=== PATIENT | male | born 1970 | race Caucasian/White ===

== ENCOUNTER 2021-04-03 10:03 | Inpatient (IN) | payer OTHER ==
[2021-04-03 11:10] LABS: Mean Corpuscular HGB CONC 32.9 g/dL (32.0-36.0); Mean Corpuscular Hemoglobin 32.7 pg (27.0-31.0); Mean Corpuscular Volume 99.4 fL (78.0-98.0); RBC Distribution Width 14.7 % (11.5-14.5); Red Blood Cell (RBC) Count 3.96 mill/uL (4.70-6.10)
[2021-04-03] MEDS ORDERED: Multivitamins, Adult 10 ML, Thiamine HCl 100 MG, Folic Acid 1 MG in Dextrose 5 %-0.45 %... IV SCH (11:30)
[2021-04-03] MEDS ORDERED: Sodium Chloride 0.9% 1,000 ML IV SCH (11:30)
[2021-04-03 11:32] LABS: Anisocytosis SLIGHT = 6-15 cells (100X) (0-5/hpf); Eosinophils 4 % (0-10); Hypochromia SLIGHT = 6-15 cells (100X) (0-5/hpf); Lymphocytes 21 % (21-51); MDiff Complete? YES; Mean Platelet Volume 9.4 fL (7.4-10.4); Monocytes 10 % (0-10); Neutrophil 62 % (42-75); Platelet Count 109 thou/uL (130-400); Platelet Morphology Comment Appears Decreased; Reactive Lymphocytes 3 % (0-10); Target Cells SLIGHT = 2-5 cells (100X) (0-1/hpf)
[2021-04-03 11:41] LABS: HBCM Index 0.14 S/CO (0-0.79); HBSAg Index 0.13 S/CO (0-0.99); Hep A IgM AB Non-Reactive (NonReactive); Hep A IgM S/CO 0.15 S/CO (0-0.79); Hep B Surf Ag Non-Reactive S/CO (NonReactive); Hep C IgG Ab Non-Reactive (NonReactive); Hep C Index 0.23 S/CO (0-0.79); Hepatitis B Core IgM Abs Non-Reactive (NonReactive)
[2021-04-03 12:10] LABS: INR-International Normal Ratio 1.1; PTT 32.7 sec (22.9-36.1); Prothrombin Time 14.7 sec (12.0-14.7)
[2021-04-03 12:13] LABS: Acetaminophen Less than 6.0 mcg/mL (10.0-30.0); Alcohol 214 mg/dL (Less than 10); Salicylate Less than 8.0 mg/dL (15.0-30.0)
[2021-04-03 12:15] LABS: ALT (SGPT) 161 U/L (8-55); AST (SGOT) 266 U/L (5-34); Albumin 2.9 g/dL (3.5-5.0); Alkaline Phosphatase 287 U/L (40-110); Anion Gap 15 mmol/L (10-20); BUN (Urea Nitrogen) 8 mg/dL (8.9-20.6); Bilirubin, Total 15.1 mg/dL (0.2-1.2); CK (CPK) 63 U/L (30-200); Calc. Creatinine Clearance 0 mL/min (70-130); Calcium 7.9 mg/dL (7.8-10.44); Carbon Dioxide 23 mmol/L (22-29); Chloride 95 mmol/L (98-107); Globulin 2.4 g/dL (2.4-3.5); Glucose 108 mg/dL (70-105); Lipase 145 U/L (8-78); Potassium 3.8 mmol/L (3.5-5.1); Protein, Total 5.3 g/dL (6.0-8.3); Sodium 129 mmol/L (136-145)
[2021-04-03 12:55] LABS: Bilirubin 4+ (Negative); Blood, Urine 1+ (Negative); Clarity Turbid (Clear); Glucose, Urine (Dipstick) Normal (Negative); Ketone, Urine Negative (Negative); Leukocyte Negative Leu/uL (Negative); Nitrite Negative (Negative); Protein, Urine (Dipstick) 30 mg/dL (Neg-Trace); RBC/HPF 0-3 HPF (0-3); Specific Gravity, Urine 1.013 (1.002-1.036); Squamous Epithelial 0-3 HPF (0-3); Urobilinogen Normal mg/dL (Less than 2); pH, Urine 6.5 (5.0-9.0)
[2021-04-03 13:12] LABS: Bilirubin, Direct 11.2 mg/dL (0.1-0.3)
[2021-04-03 13:17] LABS: Bacteria/HPF Rare-Few HPF (None Seen); Transitional Epithelial 0-3 HPF (None Seen); WBC/HPF 0-3 HPF (0-3)
[2021-04-03] MEDS ORDERED: Ondansetron PF 4 MG/2 ML Vial IVP PRN (13:45)
[2021-04-03] MEDS ORDERED: Senokot S 8.6-50 MG TAB PO PRN (13:45)
[2021-04-03 14:19] LABS: Amphetamine Not Detected (NotDetected); Barbiturates Screen Not Detected (NotDetected); Benzodiazepine Screen Detected (NotDetected); Cocaine Metabolite Screen Not Detected (NotDetected); Medtox Control Line Valid? VALID (VALID); Medtox Reader # READER 4; Methadone Not Detected (NotDetected); Methamphetamine Not Detected (NotDetected); Opiate Screen Not Detected (NotDetected); Oxycodone Screen Not Detected (NotDetected); Phencyclidine (PCP) Not Detected (NotDetected); THC/Cannabinoid Screen Not Detected (NotDetected); Tricyclic Screen Not Detected (NotDetected)
[2021-04-03] MEDS ORDERED: hydrALAZINE 20 MG/ML VIAL SLOW IVP PRN (14:24)
[2021-04-03] MEDS ORDERED: Moxifloxacin 0.5% Opth Drop 3 ML BOT EA EYE SCH (15:00)
[2021-04-03 15:07] VITALS: BMI 39.2
[2021-04-03] MEDS: Lorazepam 1 MG TAB PO SCH ×2 (15:47→20:12)
[2021-04-03 20:16] LABS: SARS-CoV-2 NAA Rapid Test Not Detected (NotDetected)
[2021-04-04] MEDS: Lorazepam 1 MG TAB PO SCH ×2 (01:40→07:36)
[2021-04-04 05:09] LABS: INR-International Normal Ratio 1.1; Prothrombin Time 14.5 sec (12.0-14.7)
[2021-04-04 05:22] LABS: Hemoglobin 12.2 g/dL (14.0-18.0); Lymphocytes 31 % (21-51); MDiff Complete? YES; Mean Corpuscular HGB CONC 34.5 g/dL (32.0-36.0); Mean Corpuscular Hemoglobin 34.4 pg (27.0-31.0); Mean Platelet Volume 9.3 fL (7.4-10.4); Metamyelocyte 1 % (0-0); Monocytes 11 % (0-10); Neutrophil 57 % (42-75); Platelet Count 85 thou/uL (130-400); Platelet Morphology Comment Appears Decreased; RBC Distribution Width 14.9 % (11.5-14.5); Red Blood Cell (RBC) Count 3.53 mill/uL (4.70-6.10); White Blood Cell (WBC) Count 3.6 thou/uL (4.8-10.8)
[2021-04-04 05:32] LABS: ALT (SGPT) 153 U/L (8-55); AST (SGOT) 281 U/L (5-34); Albumin 2.9 g/dL (3.5-5.0); Alkaline Phosphatase 306 U/L (40-110); Anion Gap 13 mmol/L (10-20); BUN (Urea Nitrogen) 7 mg/dL (8.9-20.6); Bilirubin, Total 15.8 mg/dL (0.2-1.2); CRP (Inflammatory) 2.42 mg/dL (= or < 0.5); Calc. Creatinine Clearance 216 mL/min (70-130); Calcium 7.8 mg/dL (7.8-10.44); Carbon Dioxide 24 mmol/L (22-29); Cardiac Risk TEST NOT PERFORMED (Less than 4.5); Chloride 95 mmol/L (98-107); Cholesterol 256 mg/dl (< 200 Desired); Globulin 2.4 g/dL (2.4-3.5); Glucose 100 mg/dL (70-105); HDL Cholesterol Less than 8 mg/dL (>60 Neg Risk); Lipase 112 U/L (8-78); Potassium 4.1 mmol/L (3.5-5.1); Protein, Total 5.3 g/dL (6.0-8.3); Sodium 128 mmol/L (136-145); Triglycerides 180 mg/dL (Less than 150)
[2021-04-04] MEDS: Citalopram 20 MG TAB PO SCH (08:52)
[2021-04-04] MEDS: Bisoprolol Fumarate 5 MG TAB PO SCH (08:57)
[2021-04-04] MEDS: Losartan 25 MG TAB PO SCH (08:57)
[2021-04-04] MEDS: Multivitamins, Adult 10 ML, Folic Acid 1 MG, Thiamine HCl 100 MG in Dextrose 5 %-0.45 %... IV SCH (12:50)
[2021-04-04] MEDS ORDERED: Lorazepam 1 MG TAB PO SCH (14:00)
[2021-04-04] MEDS: Diazepam 5 MG TAB PO SCH (20:11)
[2021-04-04] MEDS: Lorazepam 2 MG/ML VIAL SLOW IVP PRN (23:31)
[2021-04-05 04:40] LABS: INR-International Normal Ratio 1.2; Prothrombin Time 15.3 sec (12.0-14.7)
[2021-04-05 04:54] LABS: Band 4 % (5-11); Eosinophils 2 % (0-10); Hemoglobin 11.5 g/dL (14.0-18.0); Hypochromia SLIGHT = 6-15 cells (100X) (0-5/hpf); Lymphocytes 26 % (21-51); MDiff Complete? YES; Mean Corpuscular HGB CONC 33.7 g/dL (32.0-36.0); Mean Platelet Volume 9.3 fL (7.4-10.4); Monocytes 20 % (0-10); Neutrophil 48 % (42-75); Nucleated RBC 1 % (0); Platelet Count 69 thou/uL (130-400); Platelet Morphology Comment Appears Decreased; RBC Distribution Width 15.8 % (11.5-14.5); Red Blood Cell (RBC) Count 3.38 mill/uL (4.70-6.10); Target Cells SLIGHT = 2-5 cells (100X) (0-1/hpf); White Blood Cell (WBC) Count 2.7 thou/uL (4.8-10.8)
[2021-04-05 05:15] LABS: ALT (SGPT) 127 U/L (8-55); AST (SGOT) 232 U/L (5-34); Albumin 2.8 g/dL (3.5-5.0); Alkaline Phosphatase 284 U/L (40-110); Anion Gap 15 mmol/L (10-20); BUN (Urea Nitrogen) 7 mg/dL (8.9-20.6); Bilirubin, Total 18.9 mg/dL (0.2-1.2); Calc. Creatinine Clearance 222 mL/min (70-130); Calcium 7.9 mg/dL (7.8-10.44); Carbon Dioxide 22 mmol/L (22-29); Chloride 96 mmol/L (98-107); Globulin 2.4 g/dL (2.4-3.5); Glucose 94 mg/dL (70-105); Potassium 4.1 mmol/L (3.5-5.1); Protein, Total 5.2 g/dL (6.0-8.3); Sodium 129 mmol/L (136-145)
[2021-04-05] MEDS: Citalopram 20 MG TAB PO SCH (08:46)
[2021-04-05] MEDS: Diazepam 5 MG TAB PO SCH ×2 (08:46→20:06)
[2021-04-05] MEDS: Bisoprolol Fumarate 5 MG TAB PO SCH (08:46)
[2021-04-05] MEDS: Folic Acid/Vit B Comp W-C PO SCH (08:46)
[2021-04-05] MEDS: Thiamine 100 MG TAB PO SCH (08:46)
[2021-04-05] MEDS: Losartan 25 MG TAB PO SCH (08:46)
[2021-04-05] MEDS: Multivitamins, Adult 10 ML, Folic Acid 1 MG, Thiamine HCl 100 MG in Dextrose 5 %-0.45 %... IV SCH (11:58)
[2021-04-05] MEDS: Lorazepam 2 MG/ML VIAL SLOW IVP PRN (12:29)
[2021-04-05] MEDS ORDERED: Lorazepam 2 MG/ML VIAL SLOW IVP SCH (15:15)
[2021-04-06] MEDS: Bisoprolol Fumarate 5 MG TAB PO SCH (08:39)
[2021-04-06] MEDS: Thiamine 100 MG TAB PO SCH (08:39)
[2021-04-06] MEDS: Citalopram 20 MG TAB PO SCH (08:39)
[2021-04-06] MEDS: Folic Acid/Vit B Comp W-C PO SCH (08:40)
[2021-04-06] MEDS: Diazepam 5 MG TAB PO SCH (08:40)
[2021-04-06] MEDS: Losartan 25 MG TAB PO SCH (08:40)
[2021-04-06] MEDS: Multivitamins, Adult 10 ML, Folic Acid 1 MG, Thiamine HCl 100 MG in Dextrose 5 %-0.45 %... IV SCH (12:15)
[2021-04-06 15:16] VITALS: BP 108/54; TEMP 98.9
[2021-04-07] MEDS ORDERED: prednisoLONE 10 MG ODT TAB PO SCH (09:00)
== END 2021-04-06 15:48 | disposition home or self-care (01) | DRG 432 ==
LOC: ERS 10:03 → 2NO 13:54
PROVIDERS: ADMIT Internal Medicine; ATTEND Internal Medicine
PROC: HZ2ZZZZ Detoxification Services for Substance Abuse Treatment (ICD-10-PCS; principal; 2021-04-03)
DX: K70.10 Alcoholic hepatitis without ascites (principal); K85.20 Alcohol induced acute pancreatitis without necrosis or infection; E87.1 Hypo-osmolality and hyponatremia; F10.239 Alcohol dependence with withdrawal, unspecified; I10 Essential (primary) hypertension; F41.9 Anxiety disorder, unspecified; F32.9 Major depressive disorder, single episode, unspecified; Y90.7 Blood alcohol level of 200-239 mg/100 ml; K70.30 Alcoholic cirrhosis of liver without ascites; D69.6 Thrombocytopenia, unspecified; H10.9 Unspecified conjunctivitis; Z20.822 Contact with and (suspected) exposure to COVID-19; Z98.890 Other specified postprocedural states
CPT/HCPCS: 36415; 71045; 74183; 76705; 80053; 80061; 80074; 80076; 80306; 80307; 81003; 81015; 82105; 82140; 82274; 82550; 82607; 82746; 83690; 83880; 84443; 84484; 85025; 85610; 85730; 86140; 87324; 87449; 93005; J2060; J3411; J7042; U0002; U0005

== ENCOUNTER 2022-08-29 13:19 | Inpatient (IN) | payer OTHER ==
[2022-08-29 16:42] VITALS: BMI 40.4
[2022-08-29] MEDS ORDERED: Senokot S 8.6-50 MG TAB PO PRN (16:50)
[2022-08-29] MEDS ORDERED: Ondansetron ODT 4 MG TAB PO PRN (16:50)
[2022-08-29] MEDS ORDERED: Bisacodyl 5 MG TAB PO PRN (16:50)
[2022-08-29] MEDS ORDERED: Calcium Carbonate 500 MG ChewTAB PO PRN (16:50)
[2022-08-29] MEDS ORDERED: Ondansetron PF 4 MG/2 ML Vial IVP PRN (16:50)
[2022-08-29] MEDS ORDERED: Lorazepam 1 MG TAB PO PRN (16:55)
[2022-08-29] MEDS ORDERED: Lorazepam 2 MG/ML VIAL IM PRN (16:55)
[2022-08-29] MEDS ORDERED: Electrolyte Replacement Protocol 1 EACH FS SCH (17:00)
[2022-08-29] MEDS ORDERED: Multivit, Therapeutic 1 TAB PO SCH (17:30)
[2022-08-29] MEDS ORDERED: chlordiazePOXIDE HCl 25 MG CAP PO SCH (17:30)
[2022-08-29] MEDS ORDERED: Folic Acid 1 MG TAB PO SCH (17:30)
[2022-08-29] MEDS: Thiamine HCl 200 MG/2 ML VIAL SLOW IVP SCH (17:53)
[2022-08-30 05:02] LABS: INR-International Normal Ratio 1.3; PTT 37.5 sec (22.9-36.1); Prothrombin Time 16.7 sec (12.0-14.7)
[2022-08-30 05:30] LABS: ALT (SGPT) 73 U/L (8-55); AST (SGOT) 181 U/L (5-34); Albumin 2.6 g/dL (3.5-5.0); Alkaline Phosphatase 169 U/L (40-110); Anion Gap 12 mmol/L (10-20); BUN (Urea Nitrogen) 9 mg/dL (8.4-25.7); Bilirubin, Total 15.8 mg/dL (0.2-1.2); CRP (Inflammatory) 8.31 mg/dL (= or < 0.5); Calc. Creatinine Clearance 223 mL/min (70-130); Calcium 8.4 mg/dL (7.8-10.44); Carbon Dioxide 23 mmol/L (22-29); Chloride 98 mmol/L (98-107); Cholesterol 180 mg/dl (< 200 Desired); Estimated GFR 109; Globulin 3.7 g/dL (2.4-3.5); Glucose 104 mg/dL (70-105); HDL Cholesterol Less than 8 mg/dL (>60 Neg Risk); Magnesium 1.8 mg/dL (1.6-2.6); Phosphorus 2.8 mg/dL (2.3-4.7); Potassium 4.2 mmol/L (3.5-5.1); Protein, Total 6.3 g/dL (6.0-8.3); Sodium 129 mmol/L (136-145); Triglycerides 198 mg/dL (Less than 150)
[2022-08-30 05:45] LABS: Bilirubin, Direct Greater than 10.0 mg/dL (0.1-0.3)
[2022-08-30 06:14] LABS: Band 18 % (5-11); Eosinophils 3 % (0-10); Hemoglobin 12.8 g/dL (14.0-18.0); Lymphocytes 26 % (21-51); MDiff Complete? YES; Macrocytosis SLIGHT = 6-15 cells (100X) (0-5/hpf); Mean Corpuscular HGB CONC 32.3 g/dL (32.0-36.0); Mean Corpuscular Hemoglobin 36.6 pg (27.0-31.0); Mean Platelet Volume 9.8 fL (7.4-10.4); Monocytes 12 % (0-10); Neutrophil 40 % (42-75); Platelet Count 86 thou/uL (130-400); Platelet Morphology Comment Appears Decreased; RBC Distribution Width 15.4 % (11.5-14.5); Red Blood Cell (RBC) Count 3.51 mill/uL (4.70-6.10); White Blood Cell (WBC) Count 5.2 thou/uL (4.8-10.8)
[2022-08-30] MEDS ORDERED: Magnesium 2 GM/50 ML(in water) 2 GM in Premix Bag 1 BAG IVPB SCH (08:00)
[2022-08-30] MEDS ORDERED: Thiamine 100 MG TAB PO SCH (09:00)
[2022-08-30] MEDS: Citalopram 20 MG TAB PO SCH (09:42)
[2022-08-30] MEDS: Bisoprolol Fumarate 5 MG TAB PO SCH (09:42)
[2022-08-30] MEDS: Folic Acid 1 MG TAB PO SCH (09:43)
[2022-08-30] MEDS: Thiamine HCl 200 MG/2 ML VIAL SLOW IVP SCH (15:59)
[2022-08-30] MEDS: Multivit, Therapeutic 1 TAB PO SCH (16:01)
[2022-08-30] MEDS: Losartan 25 MG TAB PO SCH (16:36)
[2022-08-30] MEDS ORDERED: Lorazepam 1 MG TAB PO PRN (16:55)
[2022-08-30] MEDS ORDERED: Cepastat Lozenges 1 LOZ PO PRN (22:39)
[2022-08-30] MEDS ORDERED: Benzonatate 100 MG CAP PO PRN (22:39)
[2022-08-31 04:23] LABS: #Eosinphils 0.1 thou/uL (0.0-0.7); #Lymphocytes 0.9 thou/uL (1.20-3.40); #Monocytes 0.9 thou/uL (0.11-0.59); #Neutrophils 4.2 thou/uL (1.40-6.50); %Basophils 0.8 % (0.0-1.0); %Eosinophils 1.9 % (0.0-10.0); %Lymphocytes 14.2 % (21.0-51.0); %Monocytes 14.9 % (0.0-10.0); %Neutrophils 68.3 % (42.0-75.0); Hemoglobin 12.7 g/dL (14.0-18.0); Mean Corpuscular HGB CONC 32.8 g/dL (32.0-36.0); Mean Corpuscular Hemoglobin 36.9 pg (27.0-31.0); Mean Platelet Volume 10.1 fL (7.4-10.4); Platelet Count 93 thou/uL (130-400); RBC Distribution Width 15.3 % (11.5-14.5); Red Blood Cell (RBC) Count 3.45 mill/uL (4.70-6.10); White Blood Cell (WBC) Count 6.2 thou/uL (4.8-10.8)
[2022-08-31 04:30] LABS: INR-International Normal Ratio 1.3; Prothrombin Time 16.1 sec (12.0-14.7)
[2022-08-31 04:43] LABS: ALT (SGPT) 72 U/L (8-55); AST (SGOT) 166 U/L (5-34); Albumin 2.5 g/dL (3.5-5.0); Alkaline Phosphatase 167 U/L (40-110); Anion Gap 11 mmol/L (10-20); BUN (Urea Nitrogen) 9 mg/dL (8.4-25.7); Bilirubin, Total 17.2 mg/dL (0.2-1.2); Calc. Creatinine Clearance 218 mL/min (70-130); Calcium 8.2 mg/dL (7.8-10.44); Carbon Dioxide 23 mmol/L (22-29); Chloride 100 mmol/L (98-107); Estimated GFR 109; Globulin 3.8 g/dL (2.4-3.5); Glucose 104 mg/dL (70-105); Magnesium 1.9 mg/dL (1.6-2.6); Potassium 4.3 mmol/L (3.5-5.1); Protein, Total 6.3 g/dL (6.0-8.3); Sodium 130 mmol/L (136-145)
[2022-08-31] MEDS ORDERED: Magnesium 2 GM/50 ML(in water) 2 GM in Premix Bag 1 BAG IVPB SCH (08:00)
[2022-08-31] MEDS: Bisoprolol Fumarate 5 MG TAB PO SCH (08:22)
[2022-08-31] MEDS: Folic Acid 1 MG TAB PO SCH (08:22)
[2022-08-31] MEDS: Multivit, Therapeutic 1 TAB PO SCH (08:22)
[2022-08-31] MEDS: Citalopram 20 MG TAB PO SCH (08:22)
[2022-08-31] MEDS: Losartan 25 MG TAB PO SCH (08:22)
[2022-08-31] MEDS ORDERED: prednisoLONE 10 MG ODT TAB PO SCH ×2 (09:00→10:00)
[2022-08-31] MEDS ORDERED: Spironolactone 25 MG TAB PO SCH (09:30)
[2022-08-31] MEDS: Furosemide 20 MG TAB PO SCH (11:17)
[2022-08-31] MEDS ORDERED: Artificial Tear Sol 15 ML BOT EA EYE PRN (11:41)
[2022-08-31] MEDS ORDERED: Lorazepam 1 MG TAB PO PRN (16:55)
[2022-08-31] MEDS: Thiamine HCl 200 MG/2 ML VIAL SLOW IVP SCH (17:23)
[2022-08-31] MEDS: Lorazepam 0.5 MG TAB PO SCH (17:24)
[2022-09-01] MEDS: Lorazepam 0.5 MG TAB PO SCH ×3 (00:17→11:16)
[2022-09-01 05:59] LABS: ALT (SGPT) 71 U/L (8-55); AST (SGOT) 137 U/L (5-34); Albumin 2.5 g/dL (3.5-5.0); Alkaline Phosphatase 154 U/L (40-110); Anion Gap 10 mmol/L (10-20); BUN (Urea Nitrogen) 10 mg/dL (8.4-25.7); Bilirubin, Total 15.4 mg/dL (0.2-1.2); Calc. Creatinine Clearance 235 mL/min (70-130); Calcium 8.2 mg/dL (7.8-10.44); Carbon Dioxide 24 mmol/L (22-29); Chloride 102 mmol/L (98-107); Estimated GFR 112; Globulin 3.8 g/dL (2.4-3.5); Glucose 114 mg/dL (70-105); Magnesium 2.1 mg/dL (1.6-2.6); Phosphorus 3.2 mg/dL (2.3-4.7); Potassium 4.3 mmol/L (3.5-5.1); Protein, Total 6.3 g/dL (6.0-8.3); Sodium 132 mmol/L (136-145)
[2022-09-01 07:37] VITALS: BP 103/67; TEMP 97.8
[2022-09-01] MEDS ORDERED: prednisoLONE 10 MG ODT TAB PO SCH (09:00)
[2022-09-01] MEDS ORDERED: predniSONE 20 MG TAB PO SCH (09:00)
[2022-09-01] MEDS ORDERED: Thiamine 100 MG TAB PO SCH (09:00)
[2022-09-01] MEDS: Citalopram 20 MG TAB PO SCH (09:20)
[2022-09-01] MEDS: Bisoprolol Fumarate 5 MG TAB PO SCH (09:20)
[2022-09-01] MEDS: Losartan 25 MG TAB PO SCH (09:20)
[2022-09-01] MEDS: Multivit, Therapeutic 1 TAB PO SCH (09:21)
[2022-09-01] MEDS: Folic Acid 1 MG TAB PO SCH (09:21)
[2022-09-01] MEDS: Furosemide 20 MG TAB PO SCH (09:21)
[2022-09-01] MEDS ORDERED: Lorazepam 0.5 MG TAB PO PRN (16:55)
== END 2022-09-01 11:00 | disposition home or self-care (01) | DRG 433 ==
LOC: MSONC 16:19
PROVIDERS: ADMIT Internal Medicine; ATTEND Internal Medicine
PROC: HZ2ZZZZ Detoxification Services for Substance Abuse Treatment (ICD-10-PCS; principal; 2022-08-29)
DX: K70.11 Alcoholic hepatitis with ascites (principal); F10.239 Alcohol dependence with withdrawal, unspecified; K76.6 Portal hypertension; K70.30 Alcoholic cirrhosis of liver without ascites; I10 Essential (primary) hypertension; F41.9 Anxiety disorder, unspecified; F32.A Depression, unspecified; Z79.899 Other long term (current) drug therapy; Z98.890 Other specified postprocedural states; Z20.822 Contact with and (suspected) exposure to COVID-19
CPT/HCPCS: 36415; 71045; 76705; 80053; 80061; 82140; 82248; 82565; 83615; 83735; 84100; 85025; 85610; 85730; 86140; J3411; J3475; U0003; U0005